=== PATIENT | male | born 1940 | race Caucasian/White ===

== ENCOUNTER 2017-01-29 12:08 | Emergency (ER) | payer OTHER ==
[2017-01-29 12:32] VITALS: BP 98/66
== END 2017-01-29 15:00 | disposition home or self-care (01) ==
LOC: ED 12:08
DX: T83.038A Leakage of other urinary catheter, initial encounter (principal); E11.9 Type 2 diabetes mellitus without complications; Z79.84 Long term (current) use of oral hypoglycemic drugs; Y92.89 Other specified places as the place of occurrence of the external cause

== ENCOUNTER 2017-02-12 20:09 | Inpatient (IN) | payer OTHER ==
[~2017-02-12] VITALS: Ht 170.2 cm; Wt 56.3 kg
[2017-02-12 20:55] LABS: UA SPECIFIC GRAVITY >=1.030 (1.005-1.035); microscopic required? YES; urine erythrocyte NEGATIVE (NEGATIVE)
[2017-02-12 21:13] LABS: BASOPHIL % 0.4 % (0-2); PLATELET COUNT 258 x10^3mcL (130-400)
[2017-02-12 21:15] LABS: RED CELL DISTRIBUTION WIDTH 17.1 % (11.5-14.5)
[2017-02-12 21:16] LABS: CALCIUM 9.8 mg/dL (8.5-10.1); CARBON DIOXIDE 31.4 mmol/L (21-32); CHLORIDE SERUM 98 mmol/L (98-107); CREATININE SERUM 0.9 mg/dL (0.7-1.3); GLUCOSE SERUM 92 mg/dL (74-106); POTASSIUM SERUM 4.6 mmol/L (3.5-5.1); SODIUM SERUM 139 mmol/L (136-145)
[2017-02-12 21:21] LABS: ALBUMIN 3.8 g/dL (3.4-5.0); ALKALINE PHOSPHATASE 53 U/L (46-116); ALT/SGPT 18 U/L (16-63); AST/SGOT 25 U/L (15-37); BILIRUBIN TOTAL 1.34 mg/dL (0.20-1.00); TOTAL PROTEIN, SERUM 7.7 g/dL (6.4-8.2)
[2017-02-12 21:54] LABS: CK-MB 3.3 ng/mL (0-3.6)
[2017-02-12] MEDS ORDERED: METFORMIN HCL500 MG PO (22:31)
[2017-02-12] MEDS ORDERED: DILTIAZEM HCL180 MG PO (22:31)
[2017-02-12] MEDS ORDERED: KLOR-CON M2020 MEQ PO (22:31)
[2017-02-12] MEDS ORDERED: FLUDROCORTISON0.1 MG PO (22:32)
[2017-02-12] MEDS ORDERED: PHARMASSURE VI500 MG PO (22:32)
[2017-02-13] VITALS (7 sets, daily range): BP systolic 93–123; BP diastolic 45–66
[2017-02-13 02:43] LABS: MAGNESIUM 1.5 mg/dL (1.8-2.4); PHOSPHOROUS 4.6 mg/dL (2.5-4.9)
[2017-02-13 02:46] LABS: FREE T4 1.45 ng/dL (0.76-1.46); T4(THYROXINE) 10.1 ug/dL (4.7-13.3)
[2017-02-13 03:06] LABS: T3 TOTAL 0.87 ng/mL
[2017-02-13 06:24] LABS: BASOPHIL % 0.3 % (0-2); PLATELET COUNT 209 x10^3mcL (130-400)
[2017-02-13 06:39] LABS: RED CELL DISTRIBUTION WIDTH 17.4 % (11.5-14.5)
[2017-02-13 06:46] LABS: CALCIUM 9.1 mg/dL (8.5-10.1); CHLORIDE SERUM 102 mmol/L (98-107); CREATININE SERUM 0.7 mg/dL (0.7-1.3); GLUCOSE SERUM 75 mg/dL (74-106); SODIUM SERUM 140 mmol/L (136-145)
[2017-02-14 08:54] LABS: CALCIUM 8.5 mg/dL (8.5-10.1); CARBON DIOXIDE 26.6 mmol/L (21-32); CHLORIDE SERUM 104 mmol/L (98-107); CREATININE SERUM 0.6 mg/dL (0.7-1.3); GLUCOSE SERUM 103 mg/dL (74-106); MAGNESIUM 2.3 mg/dL (1.8-2.4); POTASSIUM SERUM 3.8 mmol/L (3.5-5.1); SODIUM SERUM 141 mmol/L (136-145)
[2017-02-14 08:55] LABS: PLATELET COUNT 208 x10^3mcL (130-400)
[2017-02-14 09:57] LABS: RED CELL DISTRIBUTION WIDTH 17.1 % (11.5-14.5)
[2017-02-14 09:58] LABS: BASOPHIL % 0 % (0-2)
[2017-02-14] MEDS ORDERED: HIBICLENS118 ML TOP (10:46)
[2017-02-14] MEDS ORDERED: BACO TOP (10:46)
[2017-02-14] MEDS ORDERED: FLUCONAZOLE100 MG PO (10:57)
[2017-02-14 11:05] VITALS: BP 112/70
[2017-02-14] MEDS ORDERED: SULFAMETH/TRIME1 TA3 PO (11:08)
[2017-02-14] MEDS ORDERED: LAC PO (11:09)
[2017-02-14 14:26] VITALS: BP 118/69
[2017-02-14 18:21] VITALS: BP 91/58
[2017-02-14 19:45] VITALS: BP 105/54
[2017-02-15 05:41] VITALS: BP 152/66
[2017-02-15 06:32] LABS: PLATELET COUNT 211 x10^3mcL (130-400)
[2017-02-15 06:40] LABS: CALCIUM 8.5 mg/dL (8.5-10.1); CARBON DIOXIDE 28.5 mmol/L (21-32); CHLORIDE SERUM 102 mmol/L (98-107); CREATININE SERUM 0.5 mg/dL (0.7-1.3); GLUCOSE SERUM 138 mg/dL (74-106); SODIUM SERUM 140 mmol/L (136-145)
[2017-02-15 06:43] LABS: POTASSIUM SERUM 2.9 mmol/L (3.5-5.1)
[2017-02-15 06:44] LABS: BASOPHIL % 0 % (0-2); RED CELL DISTRIBUTION WIDTH 16.9 % (11.5-14.5)
[2017-02-15 10:50] VITALS: BP 132/99
[2017-02-15 11:57] VITALS: BP 132/99
[2017-02-19 14:30] VITALS: Ht 170.2 cm; Wt 56.3 kg
== END 2017-02-15 13:11 | disposition home health service (06) | DRG 840 ==
LOC: ED 20:09 → DU 23:02
PROVIDERS: Emergency Medicine; ADMIT Family Medicine
DX: C85.98 Non-Hodgkin lymphoma, unspecified, lymph nodes of multiple sites (principal); G93.41 Metabolic encephalopathy; Z68.1 Body mass index [BMI] 19.9 or less, adult; N39.0 Urinary tract infection, site not specified; E11.9 Type 2 diabetes mellitus without complications; E86.0 Dehydration; I10 Essential (primary) hypertension; D64.9 Anemia, unspecified; Z87.891 Personal history of nicotine dependence; Z79.84 Long term (current) use of oral hypoglycemic drugs
CPT/HCPCS: 82962; 83880; 84439; 92526-GN; 92610-GN; 97110-GP; 97530-GP; J0690; J0696; J1450; J2060; J2270; J3475; J3480; J7030; J7040; J7042; Q0092

== ENCOUNTER 2017-03-11 16:08 | Emergency (ER) | payer OTHER ==
[~2017-03-11] VITALS: Ht 167.6 cm; Wt 54.4 kg
[~2017-03-11 16:08] MED LIST: BACO TOP; DILTIAZEM HCL180 MG PO; FLUCONAZOLE100 MG PO; FLUDROCORTISON0.1 MG PO; HIBICLENS118 ML TOP; KLOR-CON M2020 MEQ PO; LAC PO; METFORMIN HCL500 MG PO; PHARMASSURE VI500 MG PO; SULFAMETH/TRIME1 TA3 PO
[2017-03-11 19:44] LABS: CALCIUM 9.2 mg/dL (8.5-10.1); CARBON DIOXIDE 26.1 mmol/L (21-32); CHLORIDE SERUM 103 mmol/L (98-107); CREATININE SERUM 0.7 mg/dL (0.7-1.3); GLUCOSE SERUM 88 mg/dL (74-106); POTASSIUM SERUM 4.1 mmol/L (3.5-5.1); SODIUM SERUM 139 mmol/L (136-145)
[2017-03-11 19:46] LABS: PLATELET COUNT 216 x10^3mcL (130-400)
[2017-03-11 19:49] LABS: ALKALINE PHOSPHATASE 58 U/L (46-116); ALT/SGPT 21 U/L (16-63); AST/SGOT 17 U/L (15-37); PHOSPHOROUS 3.5 mg/dL (2.5-4.9); TOTAL PROTEIN, SERUM 6.8 g/dL (6.4-8.2); URIC ACID 4.8 mg/dL (3.5-7.2)
[2017-03-11 19:52] LABS: ALBUMIN 3.2 g/dL (3.4-5.0)
[2017-03-11 19:53] LABS: RED CELL DISTRIBUTION WIDTH 16.7 % (11.5-14.5)
[2017-03-11 20:00] LABS: UA SPECIFIC GRAVITY 1.025 (1.005-1.035); microscopic required? YES; urine erythrocyte NEGATIVE (NEGATIVE)
[2017-03-11 20:28] LABS: BAND NEUTROPHIL 2 % (0-10); BASOPHIL 0 % (0-2); MONOCYTE 4 % (0-7); SEGMENTED NEUTROPHILS 74 % (37-75)
[2017-03-11 20:29] LABS: rbc morphology (normal/abnorm) ABNORMAL (NORMAL)
[2017-03-11 20:30] LABS: PLATELET MORPHOLOGY PLATELETS NORMAL
[2017-03-11 22:11] VITALS: BP 142/86
[2017-03-12] MEDS ORDERED: NYSTATIN100000 U/M PO (23:30)
[2017-03-12] MEDS ORDERED: HYDROCORTISONE10 M1 PO (23:33)
[2017-03-12] MEDS ORDERED: SYMBICORT1 AE3 (23:34)
[2017-03-12] MEDS ORDERED: DEXAMETHAS0.5 MG/5 M PO (23:34)
== END 2017-03-11 22:11 | disposition home or self-care (01) ==
LOC: ED 16:08
PROVIDERS: Emergency Medicine
DX: N39.0 Urinary tract infection, site not specified (principal); E86.0 Dehydration; R06.02 Shortness of breath; C79.31 Secondary malignant neoplasm of brain; C79.51 Secondary malignant neoplasm of bone; I10 Essential (primary) hypertension; E11.9 Type 2 diabetes mellitus without complications; D64.9 Anemia, unspecified; Z79.899 Other long term (current) drug therapy; Z79.84 Long term (current) use of oral hypoglycemic drugs; Z91.048 Other nonmedicinal substance allergy status
CPT/HCPCS: 83880; J7030

== ENCOUNTER 2017-03-12 19:55 | Inpatient (IN) | payer OTHER ==
[~2017-03-12] VITALS: Ht 172.7 cm; Wt 50.0 kg
[2017-03-12 20:42] LABS: PLATELET COUNT 224 x10^3mcL (130-400)
[2017-03-12 20:45] LABS: CARBON DIOXIDE 25.2 mmol/L (21-32); CHLORIDE SERUM 105 mmol/L (98-107); CREATININE SERUM 0.6 mg/dL (0.7-1.3); GLUCOSE SERUM 129 mg/dL (74-106); POTASSIUM SERUM 4.4 mmol/L (3.5-5.1); SODIUM SERUM 139 mmol/L (136-145)
[2017-03-12 20:49] LABS: ALKALINE PHOSPHATASE 48 U/L (46-116); ALT/SGPT 19 U/L (16-63); AST/SGOT 15 U/L (15-37); BILIRUBIN TOTAL 0.7 mg/dL (0.20-1.00); TOTAL PROTEIN, SERUM 6.4 g/dL (6.4-8.2)
[2017-03-12 20:50] LABS: ALBUMIN 2.9 g/dL (3.4-5.0); RED CELL DISTRIBUTION WIDTH 16.8 % (11.5-14.5)
[2017-03-12 21:35] LABS: CK-MB 1.6 ng/mL (0-3.6)
[2017-03-12 21:41] LABS: BAND NEUTROPHIL 1 % (0-10); BASOPHIL 0 % (0-2); MONOCYTE 4 % (0-7); SEGMENTED NEUTROPHILS 90 % (37-75)
[2017-03-12 21:42] LABS: PLATELET MORPHOLOGY PLATELETS NORMAL; rbc morphology (normal/abnorm) NORMAL (NORMAL)
[2017-03-12] MEDS ORDERED: NYSTATIN100000 U/M PO (23:30)
[2017-03-12] MEDS ORDERED: HYDROCORTISONE10 M1 PO (23:33)
[2017-03-12] MEDS ORDERED: DEXAMETHAS0.5 MG/5 M PO (23:34)
[2017-03-12] MEDS ORDERED: SYMBICORT1 AE3 (23:34)
[2017-03-13 00:09] LABS: BASOPHIL % 0.2 % (0-2); PLATELET COUNT 217 x10^3mcL (130-400)
[2017-03-13 00:12] LABS: RED CELL DISTRIBUTION WIDTH 17.2 % (11.5-14.5)
[2017-03-13 01:36] LABS: PHOSPHOROUS 2.8 mg/dL (2.5-4.9)
[2017-03-13 02:54] VITALS: BP 103/75
[2017-03-13 05:43] LABS: CALCIUM 7.8 mg/dL (8.5-10.1); CARBON DIOXIDE 22.7 mmol/L (21-32); CHLORIDE SERUM 110 mmol/L (98-107); CREATININE SERUM 0.8 mg/dL (0.7-1.3); GLUCOSE SERUM 202 mg/dL (74-106); POTASSIUM SERUM 4.9 mmol/L (3.5-5.1); SODIUM SERUM 141 mmol/L (136-145)
[2017-03-13 05:45] LABS: BASOPHIL % 0.5 % (0-2); PLATELET COUNT 156 x10^3mcL (130-400)
[2017-03-13 05:46] LABS: RED CELL DISTRIBUTION WIDTH 15.9 % (11.5-14.5)
[2017-03-13 07:20] VITALS: BP 129/105
== END 2017-03-13 13:32 | disposition expired | DRG 377 ==
LOC: ED 19:55 → DU 22:14 → IC 22:14
PROVIDERS: Emergency Medicine; ADMIT Family Medicine
PROC: 30233N1 Transfusion of Nonautologous Red Blood Cells into Peripheral Vein, Percutaneous Approach (ICD-10-PCS; principal; 2017-03-13)
PROC: 0BH17EZ Insertion of Endotracheal Airway into Trachea, Via Natural or Artificial Opening (ICD-10-PCS; 2017-03-13)
PROC: 5A12012 Performance of Cardiac Output, Single, Manual (ICD-10-PCS; 2017-03-13)
PROC: 5A1935Z Respiratory Ventilation, Less than 24 Consecutive Hours (ICD-10-PCS; 2017-03-13)
DX: K92.2 Gastrointestinal hemorrhage, unspecified (principal); N17.0 Acute kidney failure with tubular necrosis; D62 Acute posthemorrhagic anemia; N39.0 Urinary tract infection, site not specified; C85.90 Non-Hodgkin lymphoma, unspecified, unspecified site; C79.51 Secondary malignant neoplasm of bone; C79.31 Secondary malignant neoplasm of brain; E44.0 Moderate protein-calorie malnutrition; Z68.1 Body mass index [BMI] 19.9 or less, adult; R57.8 Other shock; I10 Essential (primary) hypertension; M51.36 Other intervertebral disc degeneration, lumbar region; Z87.891 Personal history of nicotine dependence; Z66 Do not resuscitate
CPT/HCPCS: 83880; A4628; C9113; J0171; J0696; J2370; J3490; J7030; J7040; J7050; P9016; Q0092